=== PATIENT | male | born 1975 | race Hispanic/Latino ===

== ENCOUNTER 2018-11-11 19:32 | Emergency (ER) | payer OTHER ==
[~2018-11-11] VITALS: Ht 152.4 cm; Wt 45.4 kg
[2018-11-11] MEDS ORDERED: DIFLUCAN150 MG PO (19:58)
[2018-11-11] MEDS ORDERED: DOXYCYCLINE HY100 MG PO (19:58)
[2018-11-11] MEDS ORDERED: NAPROXEN500 MG PO (19:59)
[2018-11-11] MEDS ORDERED: ULTRAM50 MG PO (19:59)
[2018-11-11] MEDS ORDERED: BACTRIM DS TAB1 EACH PO (20:00)
[2018-11-11] MEDS ORDERED: GRISEOFULVIN500 MG PO (20:01)
== END 2018-11-11 23:26 | disposition home or self-care (01) ==
LOC: ED 19:32
PROC: 0H90XZZ Drainage of Scalp Skin, External Approach (ICD-10-PCS; principal; 2018-11-11)
DX: L02.811 Cutaneous abscess of head [any part, except face] (principal); Z87.891 Personal history of nicotine dependence; Z79.899 Other long term (current) drug therapy; Z79.891 Long term (current) use of opiate analgesic
CPT/HCPCS: 10060; 80053; 83605; 85025; 87070; 87077; 87186; 87205; 99283-25; J2405